=== PATIENT | female | born 1945 | race Hispanic/Latino ===

== ENCOUNTER 2018-05-12 12:34 | Outpatient (CLI) | payer MEDICARE, OTHER | END 2018-05-12 12:35 | disposition home or self-care (01) | LOC: BICMAMMO 12:34 | PROVIDERS: ATTEND Family Medicine | DX: Z12.31 Encounter for screening mammogram for malignant neoplasm of breast (principal) | CPT/HCPCS: 77063; 77067 ==

== ENCOUNTER 2018-11-24 15:03 | Outpatient (CLI) | payer MEDICARE, OTHER ==
--- NOTE | 2018-11-24 16:23 | RAD ---
LUMBAR SPINE RADIOGRAPH SERIES, 2-3 VIEWS: 11/24/18 INDICATION: M54.5, low back pain for months without known injury or prior surgery. FINDINGS: Lumbar spine vertebral body heights and alignment are maintained. No significant disc space narrowing . 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 Large volume of retained fecal mate rial throughout the colon. IMPRESSION: Mild degenerative changes of the lumbar spine without compression fracture or subluxation. Prominent volume of retained fecal material throughout the colon. Correlate clinically. POS: [facility]
== END 2018-11-24 15:04 | disposition home or self-care (01) ==
LOC: SCSRAD 15:03
PROVIDERS: ATTEND Family Medicine
DX: M54.5 Low back pain (principal); M47.816 Spondylosis without myelopathy or radiculopathy, lumbar region; K59.00 Constipation, unspecified
CPT/HCPCS: 72100

== ENCOUNTER 2019-05-26 08:44 | Outpatient (CLI) | payer MEDICARE, OTHER ==
--- NOTE | 2019-05-26 10:22 | MMO ---
Bilateral MAMMO Bilat Screen [facility]. CLINICAL HISTORY: Patient is 74 years old and is seen for screening. The patient has no family history of breast cancer. The patient has no personal history of cancer. VIEWS: The views performed were: bilateral craniocaudal with tomosynthesis; bilateral mediolateral oblique with tomosynthesis; and left mediolateral oblique. FILMS COMPARED: The present examination has been compared to prior imaging studies performed at [facility] on 07/27/2014, 12/19/2015, 05/04/2017 and 05/12/2018. MAMMOGRAM FINDINGS: The breasts are heterogeneously dense, which could obscure a lesion on mammography. There are no suspicious masses, suspicious calcifications, or new areas of architectural distortion. IMPRESSION: THERE IS NO MAMMOGRAPHIC EVIDENCE OF MALIGNANCY. A ROUTINE FOLLOW-UP MAMMOGRAM IN 1 YEAR IS RECOMMENDED. THE RESULTS OF THIS EXAM WERE SENT TO THE PATIENT. ACR BI-RADS Category 1 - Negative MAMMOGRAPHY NOTE: 1. A negative mammogram report should not delay a biopsy if a dominant of clinically suspicious mass is present. 2. Approximately 10% to 15% of breast cancers are not detected by mammography. 3. Adenosis and dense breasts may obscure an underlying neoplasm. Reported by: ANA SMITH MD Electonically Signed: [id number]
== END 2019-05-26 08:45 | disposition home or self-care (01) ==
LOC: BICMAMMO 08:44
PROVIDERS: ATTEND Family Medicine
DX: Z12.31 Encounter for screening mammogram for malignant neoplasm of breast (principal)
CPT/HCPCS: 77063; 77067

== ENCOUNTER 2022-08-07 11:54 | Outpatient (CLI) | payer MEDICARE, OTHER | END 2022-08-07 11:55 | disposition home or self-care (01) | LOC: BICMAMMO 11:54 | PROVIDERS: ATTEND Family Medicine | DX: Z12.31 Encounter for screening mammogram for malignant neoplasm of breast (principal) | CPT/HCPCS: 77063; 77067 ==

== ENCOUNTER 2023-06-04 12:47 | Outpatient (CLI) | payer MEDICARE, OTHER | END 2023-06-04 12:48 | disposition home or self-care (01) | LOC: RAD 12:47 | PROVIDERS: ATTEND Nurse Practitioner Family | DX: M47.26 Other spondylosis with radiculopathy, lumbar region (principal) | CPT/HCPCS: 72100 ==

== ENCOUNTER 2023-09-18 09:54 | Outpatient (CLI) | payer MEDICARE, OTHER | END 2023-09-18 09:55 | disposition home or self-care (01) | LOC: BICMAMMO 09:54 | PROVIDERS: ATTEND Nurse Practitioner Family | DX: Z12.31 Encounter for screening mammogram for malignant neoplasm of breast (principal) | CPT/HCPCS: 77063; 77067 ==

== ENCOUNTER 2023-11-27 13:52 | Inpatient (IN) | payer MEDICARE, OTHER ==
[2023-11-27 14:43] LABS: #Basophils 0.1 thou/uL (0.0-0.2); #Monocytes 0.6 thou/uL (0.11-0.59); #Neutrophils 3.8 thou/uL (1.40-6.50); %Basophils 0.8 % (0.0-1.0); %Eosinophils 0.4 % (0.0-10.0); %Monocytes 8.1 % (0.0-10.0); %Neutrophils 53.4 % (42.0-75.0); Hematocrit 34.8 % (36.0-47.0); Hemoglobin 11.2 g/dL (12.0-16.0); Mean Corpuscular HGB CONC 32.2 g/dL (32.0-36.0); Mean Corpuscular Hemoglobin 30.1 pg (27.0-31.0); Mean Corpuscular Volume 93.5 fl (78.0-98.0); Platelet Count 312 10x3/uL (130-400); RBC Distribution Width 13.2 % (11.5-14.5); Red Blood Cell (RBC) Count 3.72 mill/uL (4.20-5.40); White Blood Cell (WBC) Count 7.2 10x3/uL (4.8-10.8)
[2023-11-27 14:52] LABS: ALT (SGPT) 14 U/L (8-55); AST (SGOT) 17 U/L (5-34); Albumin 4.3 g/dL (3.4-4.8); Alkaline Phosphatase 84 U/L (40-110); Anion Gap 16 mmol/L (10-20); BUN (Urea Nitrogen) 14 mg/dL (9.8-20.1); Bilirubin, Total 0.6 mg/dL (0.2-1.2); Calc. Creatinine Clearance 0 mL/min (70-130); Calcium 9.5 mg/dL (7.8-10.44); Carbon Dioxide 23 mmol/L (23-31); Chloride 104 mmol/L (98-107); Estimated GFR 72; Globulin 3.2 g/dL (2.4-3.5); Glucose 119 mg/dL (83-110); Potassium 3.8 mmol/L (3.5-5.1); Protein, Total 7.5 g/dL (5.8-8.1); Sodium 139 mmol/L (136-145)
[2023-11-27 14:55] LABS: Troponin I Less than 0.010 ng/mL (< 0.028)
[2023-11-27 14:58] LABS: INR-International Normal Ratio 0.9; Prothrombin Time 12.4 sec (12.0-14.7)
[2023-11-27] MEDS ORDERED: Aspirin Chewable 81 MG TAB ONE (14:58)
[2023-11-27 14:59] LABS: PTT 26.6 sec (22.9-36.1)
[2023-11-27] MEDS ORDERED: Ondansetron ODT 4 MG TAB PO PRN (16:08)
[2023-11-27] MEDS ORDERED: Senokot S 8.6-50 MG TAB PO PRN (16:08)
[2023-11-27] MEDS ORDERED: Ondansetron PF 4 MG/2 ML Vial IVP PRN (16:08)
[2023-11-27] MEDS ORDERED: hydrALAZINE 20 MG/ML VIAL SLOW IVP PRN (16:08)
[2023-11-27] MEDS ORDERED: Acetaminophen 650 MG Suppository PR PRN (16:08)
[2023-11-27 17:52] VITALS: BMI 27.3
[2023-11-27 18:22] LABS: Troponin I Less than 0.010 ng/mL (< 0.028)
[2023-11-27 20:50] LABS: Troponin I 0.014 ng/mL (< 0.028)
[2023-11-27] MEDS: Atorvastatin Calcium 40 MG TAB PO SCH (23:17)
[2023-11-27] MEDS: Famotidine 20 MG TAB PO SCH (23:18)
[2023-11-28 00:33] LABS: Bacteria/HPF 3+ HPF (None Seen); Bilirubin Negative (Negative); Blood, Urine Negative (Negative); CAUTI Indications for Culture Alt mental st,lethar; Clarity Clear (Clear); Glucose, Urine (Dipstick) Normal (Negative); Ketone, Urine Negative (Negative); Leukocyte Negative Leu/uL (Negative); Nitrite Negative (Negative); Protein, Urine (Dipstick) Negative (Neg-Trace); RBC/HPF 0-3 HPF (0-3); Specific Gravity, Urine 1.015 (1.002-1.036); Squamous Epithelial 0-3 HPF (0-3); Urobilinogen Normal mg/dL (Less than 2); WBC/HPF 0-3 HPF (0-3); pH, Urine 5.5 (5.0-9.0)
[2023-11-28 00:34] LABS: Urine Culture Reflex No No
[2023-11-28 05:28] LABS: #Monocytes 0.5 thou/uL (0.11-0.59); #Neutrophils 2.8 thou/uL (1.40-6.50); %Basophils 0.7 % (0.0-1.0); %Eosinophils 0.7 % (0.0-10.0); %Lymphocytes 38.5 % (21.0-51.0); %Neutrophils 50.7 % (42.0-75.0); Hematocrit 32.8 % (36.0-47.0); Hemoglobin 10.7 g/dL (12.0-16.0); Mean Corpuscular HGB CONC 32.6 g/dL (32.0-36.0); Mean Corpuscular Hemoglobin 29.6 pg (27.0-31.0); Mean Platelet Volume 10.4 fL (7.4-10.4); Platelet Count 254 10x3/uL (130-400); RBC Distribution Width 13.2 % (11.5-14.5); Red Blood Cell (RBC) Count 3.62 mill/uL (4.20-5.40); White Blood Cell (WBC) Count 5.5 10x3/uL (4.8-10.8)
[2023-11-28 05:54] LABS: Anion Gap 12 mmol/L (10-20); BUN (Urea Nitrogen) 15 mg/dL (9.8-20.1); Calc. Creatinine Clearance 68 mL/min (70-130); Carbon Dioxide 24 mmol/L (23-31); Chloride 107 mmol/L (98-107); Estimated GFR 84; Glucose 92 mg/dL (83-110); Sodium 139 mmol/L (136-145)
[2023-11-28 06:01] LABS: Mean Corpuscular Volume 90.6 fl (78.0-98.0)
[2023-11-28] MEDS ORDERED: Aspirin 325 mg Enteric Coated Tablet PO SCH (09:00)
[2023-11-28] MEDS ORDERED: FLU VACC QS2023(65UP)/MF59C/PF 60 MCG/0.5 ML SYRINGE IM ONE (09:00)
[2023-11-28] MEDS ORDERED: Aspirin 81 mg Enteric Coated Tablet PO SCH (09:00)
[2023-11-28 09:36] LABS: Cardiac Risk 3.1 (Less than 4.5)
[2023-11-28] MEDS: Aspirin 81 mg Enteric Coated Tablet PO SCH (09:42)
[2023-11-28] MEDS: Enoxaparin 40 MG (0.4 mL) SYRINGE SC SCH (09:42)
[2023-11-28] MEDS: Clopidogrel Bisulfate 75 MG TAB PO SCH (09:42)
[2023-11-28] MEDS: Famotidine 20 MG TAB PO SCH ×2 (09:43→20:20)
[2023-11-28] MEDS: Atorvastatin Calcium 40 MG TAB PO SCH (20:20)
[2023-11-29 07:23] LABS: #Monocytes 0.5 thou/uL (0.11-0.59); #Neutrophils 2.9 thou/uL (1.40-6.50); %Basophils 0.7 % (0.0-1.0); %Eosinophils 0.7 % (0.0-10.0); %Monocytes 9.5 % (0.0-10.0); %Neutrophils 50.9 % (42.0-75.0); Hematocrit 34.6 % (36.0-47.0); Hemoglobin 11.2 g/dL (12.0-16.0); Mean Corpuscular HGB CONC 32.4 g/dL (32.0-36.0); Mean Corpuscular Hemoglobin 29.6 pg (27.0-31.0); Mean Corpuscular Volume 91.5 fl (78.0-98.0); Mean Platelet Volume 10.8 fL (7.4-10.4); Platelet Count 279 10x3/uL (130-400); RBC Distribution Width 13.2 % (11.5-14.5); Red Blood Cell (RBC) Count 3.78 mill/uL (4.20-5.40); White Blood Cell (WBC) Count 5.7 10x3/uL (4.8-10.8)
[2023-11-29 07:49] LABS: Anion Gap 14 mmol/L (10-20); BUN (Urea Nitrogen) 16 mg/dL (9.8-20.1); Calc. Creatinine Clearance 62 mL/min (70-130); Calcium 9.2 mg/dL (7.8-10.44); Carbon Dioxide 23 mmol/L (23-31); Chloride 105 mmol/L (98-107); Estimated GFR 75; Glucose 87 mg/dL (83-110); Potassium 3.9 mmol/L (3.5-5.1); Sodium 138 mmol/L (136-145)
[2023-11-29 07:52] LABS: Hemoglobin A1c 5.8 % (4.0-6.0)
[2023-11-29] MEDS: Clopidogrel Bisulfate 75 MG TAB PO SCH (08:47)
[2023-11-29] MEDS: Enoxaparin 40 MG (0.4 mL) SYRINGE SC SCH (08:47)
[2023-11-29] MEDS: Aspirin 81 mg Enteric Coated Tablet PO SCH (08:47)
[2023-11-29] MEDS: Famotidine 20 MG TAB PO SCH ×2 (08:47→20:51)
[2023-11-29] MEDS: Atorvastatin Calcium 40 MG TAB PO SCH (20:51)
[2023-11-29] MEDS: Amlodipine 5 MG TAB PO SCH (20:51)
[2023-11-30] MEDS: Acetaminophen 325 MG TAB PO PRN (08:02)
[2023-11-30] MEDS: Enoxaparin 40 MG (0.4 mL) SYRINGE SC SCH (08:03)
[2023-11-30] MEDS: Famotidine 20 MG TAB PO SCH ×2 (08:03→20:22)
[2023-11-30] MEDS: Clopidogrel Bisulfate 75 MG TAB PO SCH (08:03)
[2023-11-30] MEDS: Aspirin 81 mg Enteric Coated Tablet PO SCH (08:03)
[2023-11-30] MEDS: Amlodipine 5 MG TAB PO SCH (20:22)
[2023-11-30] MEDS: Atorvastatin Calcium 40 MG TAB PO SCH (20:22)
[2023-12-01] MEDS: Enoxaparin 40 MG (0.4 mL) SYRINGE SC SCH (09:47)
[2023-12-01] MEDS: Aspirin 81 mg Enteric Coated Tablet PO SCH (09:47)
[2023-12-01] MEDS: Famotidine 20 MG TAB PO SCH ×2 (09:47→21:06)
[2023-12-01] MEDS: Clopidogrel Bisulfate 75 MG TAB PO SCH (09:47)
[2023-12-01] MEDS: Amlodipine 5 MG TAB PO SCH (21:06)
[2023-12-01] MEDS: Acetaminophen 325 MG TAB PO PRN (21:06)
[2023-12-01] MEDS: Atorvastatin Calcium 40 MG TAB PO SCH (21:06)
[2023-12-02] MEDS: Aspirin 81 mg Enteric Coated Tablet PO SCH (09:09)
[2023-12-02] MEDS: Famotidine 20 MG TAB PO SCH (09:09)
[2023-12-02] MEDS: Clopidogrel Bisulfate 75 MG TAB PO SCH (09:09)
[2023-12-02] MEDS: Enoxaparin 40 MG (0.4 mL) SYRINGE SC SCH (09:10)
[2023-12-02 12:09] VITALS: TEMP 96.2
[2023-12-02 15:44] VITALS: BP 112/62
== END 2023-12-02 17:43 | DRG 65 ==
LOC: ERS 13:52 → ERHOLD 15:13 → 2SE 22:01 → OBSVTOIN 11-28 08:45
PROVIDERS: ADMIT Internal Medicine; ATTEND Family Medicine
DX: I63.9 Cerebral infarction, unspecified (principal); G81.91 Hemiplegia, unspecified affecting right dominant side; K21.9 Gastro-esophageal reflux disease without esophagitis; R47.01 Aphasia; E78.5 Hyperlipidemia, unspecified; I16.0 Hypertensive urgency; R29.810 Facial weakness; R47.81 Slurred speech; D64.9 Anemia, unspecified; R47.1 Dysarthria and anarthria; Z86.73 Personal history of transient ischemic attack (TIA), and cerebral infarction without residual deficits; Z79.899 Other long term (current) drug therapy; Z90.710 Acquired absence of both cervix and uterus
CPT/HCPCS: 36415; 70450; 70551; 71045; 80048; 80053; 80061; 81001; 83036; 83735; 84484; 85025; 85610; 85730; 93005; 93306; 93880; G0378; J1650; J2405

== ENCOUNTER 2025-09-21 23:11 | Emergency (ER) | payer MEDICARE, OTHER ==
[2025-09-22] MEDS ORDERED: Ondansetron PF 4 MG/2 ML Vial ONE (00:36)
[2025-09-22 00:40] LABS: #Basophils 0.06 10x3/uL (0.0-0.2); #Eosinophils 0.10 10x3/uL (0.0-0.7); #Monocytes 0.66 10x3/uL (0.11-0.59); #Neutrophils 3.71 10x3/uL (1.40-6.50); %Basophils 0.8 % (0.0-1.0); %Eosinophils 1.4 % (0.0-10.0); %Lymphocytes 37.2 % (21.0-51.0); %Monocytes 9.1 % (0.0-10.0); %Neutrophils 51.4 % (42.0-75.0); Hematocrit 32.9 % (36.0-47.0); Hemoglobin 10.7 g/dL (12.0-16.0); Mean Corpuscular Hemoglobin 28.5 pg (27.0-31.0); Mean Corpuscular Volume 87.7 fL (78.0-98.0); Platelet Count 246 10x3/uL (130-400); Red Blood Cell (RBC) Count 3.75 mill/uL (4.20-5.40); White Blood Cell (WBC) Count 7.23 10x3/uL (4.8-10.8)
[2025-09-22 00:53] LABS: CAUTI Indications for Culture < 2yrs of age; Glucose, Urine (Dipstick) Normal (Negative); Leukocyte 250 Leu/uL (Negative); Protein, Urine (Dipstick) Negative (Neg-Trace); RBC/HPF 0-3 HPF (0-3); Specific Gravity, Urine 1.009 (1.002-1.036)
[2025-09-22 00:54] LABS: Bacteria/HPF 1+ HPF (None Seen); Urine Culture Reflex Yes Yes
[2025-09-22 00:54] LABS: ALT (SGPT) 13 U/L (Less than 34); AST (SGOT) 28 U/L (11-34); Albumin 4.3 g/dL (3.1-4.5); Alkaline Phosphatase 94 U/L (40-110); Anion Gap 15 mmol/L (10-20); BUN (Urea Nitrogen) 24 mg/dL (9.8-20.1); Bilirubin, Total 0.5 mg/dL (0.3-1.2); CK (CPK) 353 U/L (29-168); Calc. Creatinine Clearance 0 mL/min (70-130); Calcium 9.7 mg/dL (7.8-10.44); Carbon Dioxide 24 mmol/L (23-31); Chloride 107 mmol/L (98-107); Globulin 3.0 g/dL (2.4-3.5); Glucose 102 mg/dL (83-110); Lipase 37 U/L (8-78); Potassium 4.1 mmol/L (3.5-5.1); Sodium 142 mmol/L (136-145)
== END 2025-09-22 01:39 | disposition home or self-care (01) ==
LOC: ERS 23:11
DX: R00.2 Palpitations (principal); N39.0 Urinary tract infection, site not specified; K21.9 Gastro-esophageal reflux disease without esophagitis; I10 Essential (primary) hypertension; Z79.899 Other long term (current) drug therapy
CPT/HCPCS: 71045; 81001; 82550; 83690; 84484; 87077; 87086; 93005; J2405; 80053; 84443; 85025; 96374